=== PATIENT | female | born 1955 | race Caucasian/White ===

== ENCOUNTER 2020-12-02 13:21 | Emergency (ER) | payer OTHER ==
[~2020-12-02 13:21] MED LIST: AMLODIPINE BESY10 MG PO; COZAAR100 MG PO; FLOMAX0.4 MG PO; GLIPIZIDE XL5 MG PO; KEFLEX250 MG PO; MACROBID100 MG PO; METFORMIN HCL500 M1 PO; NORCO 5-325 TA1 EACH PO; ONDANSETRON ODT4 MG PO; ZOFRAN4 MG PO
[2020-12-02 14:11] LABS: BASOPHIL 0.4 % (0-2); EOSINOPHIL 0.4 % (0-7); HCT 40.3 % (37.0-47.0); HGB 13.4 g/dl (12.5-16.0); LYMPHOCYTE 20.8 % (15-48); MCHC 33.3 g/dL (32.0-36.0); MCV 84.3 fL (78.0-100.0); MONOCYTE 7.7 % (0-12); MPV 9.7 fL (6.0-9.5); NEUTROPHIL 70.3 % (41-80); NRBC 0; PLT 253 K/uL (150-400); RBC 4.78 M/uL (4.20-5.40); RDW 14.1 % (11.5-14.0)
[2020-12-02 14:24] LABS: BILIRUBIN NEGATIVE (NEGATIVE); BLOOD 1+ Ery/uL (NEGATIVE); CLARITY CLEAR (CLEAR); COLOR YELLOW (YELLOW); GLUCOSE (U) TRACE mg/dL (NORMAL); LEUKOCYTES NEGATIVE Leu/uL (NEGATIVE); NITRITE NEGATIVE (NEGATIVE); PROTEIN NEGATIVE (NEGATIVE); UROBILINOGEN 0.2 mg/dL (0.2-1.0)
[2020-12-02 14:26] LABS: ALBUMIN 4.1 g/dL (3.4-5.0); BILIRUBIN - TOTAL 0.4 mg/dL (0.2-1.0); BUN/CREAT RATIO (CALC) 21.3 RATIO; CREATININE 0.89 mg/dL (0.51-0.95); GLOBULIN (CALCULATION) 4.5 g/dL; POTASSIUM 4.3 mmol/L (3.5-5.1); TOTAL PROTEIN 8.6 g/dL (6.4-8.2)
[2020-12-02 14:57] LABS: BACTERIA 1+
[2020-12-02] MEDS ORDERED: PERCOCET 5-3251 EACH PO ×3 (16:30→16:36)
[2020-12-02] MEDS ORDERED: ZOFRAN4 M1 PO (16:38)
== END 2020-12-02 16:58 | disposition home or self-care (01) ==
LOC: FER 13:21
PROVIDERS: Nurse Practitioner Family
DX: K80.20 Calculus of gallbladder without cholecystitis without obstruction (principal); N13.2 Hydronephrosis with renal and ureteral calculous obstruction; I10 Essential (primary) hypertension; E11.9 Type 2 diabetes mellitus without complications; Z88.1 Allergy status to other antibiotic agents
CPT/HCPCS: 36415; 80053; 81001; 85025; J1885; J2405; J7030

== ENCOUNTER 2021-02-23 20:05 | Emergency (ER) | payer OTHER ==
[~2021-02-23 20:05] MED LIST changes: +PERCOCET 5-3251 EACH PO; +ZOFRAN4 M1 PO
[2021-02-23 20:44] LABS: BASOPHIL 0.4 % (0-2); EOSINOPHIL 0.5 % (0-7); HCT 39.8 % (37.0-47.0); HGB 13.8 g/dl (12.5-16.0); LYMPHOCYTE 21.2 % (15-48); MCH 28.6 pg (25.0-31.0); MCHC 34.7 g/dL (32.0-36.0); MCV 82.6 fL (78.0-100.0); MPV 9.7 fL (6.0-9.5); NEUTROPHIL 69.5 % (41-80); NRBC 0; PLT 251 K/uL (150-400); RBC 4.82 M/uL (4.20-5.40); RDW 13.7 % (11.5-14.0); WBC 11.1 K/uL (4.0-10.5)
[2021-02-23 20:51] LABS: BILIRUBIN NEGATIVE (NEGATIVE); BLOOD 2+ Ery/uL (NEGATIVE); CLARITY CLEAR (CLEAR); COLOR YELLOW (YELLOW); GLUCOSE (U) 3+ mg/dL (NORMAL); LEUKOCYTES NEGATIVE Leu/uL (NEGATIVE); NITRITE NEGATIVE (NEGATIVE); PROTEIN TRACE (LOW) mg/dL (NEGATIVE); UROBILINOGEN 0.2 mg/dL (0.2-1.0)
[2021-02-23 21:01] LABS: BUN/CREAT RATIO (CALC) 27.9 RATIO; CREATININE 0.61 mg/dL (0.51-0.95); POTASSIUM 4.1 mmol/L (3.5-5.1)
[2021-02-23 21:12] LABS: BACTERIA TRACE; URINARY WBC RARE
[2021-02-23] MEDS ORDERED: KETOROLAC TROME10 M1 PO (21:52)
[2021-02-23] MEDS ORDERED: FLOMAX0.4 MG PO (21:53)
== END 2021-02-23 22:45 | disposition home or self-care (01) ==
LOC: FER 20:05
PROVIDERS: Nurse Practitioner Family
DX: N13.2 Hydronephrosis with renal and ureteral calculous obstruction (principal); E11.9 Type 2 diabetes mellitus without complications; Z79.84 Long term (current) use of oral hypoglycemic drugs; Z88.8 Allergy status to other drugs, medicaments and biological substances; Z87.442 Personal history of urinary calculi
CPT/HCPCS: 36415; 80048; 81001; 85025; J1885; J2270; J2405; J7030